=== PATIENT | male | born 1945 | race Caucasian/White ===

== ENCOUNTER → 2019-02-11 | Outpatient (CLI) | payer MEDICARE, BC ==
--- NOTE | 2019-02-11 10:56 | US ---
EXAMINATION TYPE: US duplex aorta DATE OF EXAM: 02/11/2019 COMPARISON: NONE CLINICAL HISTORY: Z13.9 Screening, unspecified. Patient states no symptoms EXAM MEASUREMENTS: Abdominal Aorta: Proximal: n/a Mid: 2.0 x 1.8cm Distal: 1.6 x 1.4cm Right Iliac: 1.2 x 0.8cm Left Iliac: 1.2 x 0.8cm Proximal aorta obscured by overlying midline bowel gas, mid, distal aorta and proximal iliac arteries wnl. IMPRESSION: 1. Aorta tapers normally through its visualized course. 2. Some limitation on the examination due to bowel gas obscuring the proximal abdominal aorta.
== END | disposition home or self-care (01) ==
LOC: RADUSWWP 09:52
PROVIDERS: ATTEND Family Medicine
DX: Z13.9 Encounter for screening, unspecified (principal)
CPT/HCPCS: 93979

== ENCOUNTER → 2020-11-30 | Outpatient (CLI) | payer MEDICARE, BC ==
[2020-11-30 14:55] LABS: Basophils # (A) 0.07 X 10*3/uL (0.00-0.10); Eosinophils # (A) 0.16 X 10*3/uL (0.04-0.35); Eosinophils % (A) 2.2 %; HCT 47.8 % (39.6-50.0); HGB 15.4 g/dL (13.0-17.0); Lymphocytes # (A) 2.32 X 10*3/uL (0.90-5.00); Lymphocytes % (A) 31.9 %; MCHC 32.2 g/dL (32.0-37.0); Mean Platelet Volume 10.6 fL (9.5-12.2); Monocytes # (A) 0.75 X 10*3/uL (0.20-1.00); Monocytes % (A) 10.3 %; Neutrophils # (A) 3.93 X 10*3/uL (1.80-7.70); Platelet Count 305 X 10*3/uL (140-440); RBC 5.31 X 10*6/uL (4.40-5.60); RDW 13.5 % (11.5-14.5); WBC 7.27 X 10*3/uL (4.50-10.00)
[2020-11-30 15:12] LABS: African American GFR (CKD) 51.7 (60.0-200.0); Albumin 4.8 g/dL (3.80-4.90); Albumin/Globulin Ratio 2.18 (1.60-3.17); Anion Gap 7.3 mmol/L (4.00-12.00); BUN/Creat Ratio 19.33 Ratio (12.00-20.00); Calcium 9.7 mg/dL (8.7-10.3); Carbon Dioxide 25.7 mmol/L (21.6-31.8); Chol/HDL Ratio 3.28; Globulin 2.2 g/dL (1.6-3.3); LDL Cholesterol,Calculated 59.6 mg/dL (0.0-131.0); Non-African American GFR(CKD) 44.6 (60.0-200.0); Potassium 5.7 mmol/L (3.5-5.5); Total Bilirubin 0.7 mg/dL (0.2-1.2); VLDL Calculation 22.4 mg/dL (5.00-40.00)
[2020-11-30 15:20] LABS: T4, Free (Free Thyroxine) 1.1 ng/dL (0.80-1.80)
[2020-11-30 17:21] LABS: Hemoglobin A1C 6.5 % (4.0-6.0)
== END | disposition home or self-care (01) ==
LOC: LABWHC1 08:36
PROVIDERS: ATTEND Family Medicine
DX: E11.59 Type 2 diabetes mellitus with other circulatory complications (principal)
CPT/HCPCS: 36415; 80053; 80061; 83036; 84439; 84443; 85025